=== PATIENT | male | born 1975 | race Caucasian/White ===

== ENCOUNTER → 2017-04-29 | Outpatient (REF) | payer BC ==
[2017-05-01 00:07] LABS: Lyme Disease IgG/IgM Antibodie <0.91 ISR (0.00-0.90); Lyme Disease IgM Ab Quantitati <0.80 index (0.00-0.79)
== END ==
LOC: M LAB REF 11:46
PROVIDERS: ATTEND Nurse Practitioner Family
DX: N52.9 Male erectile dysfunction, unspecified (principal); Z11.59 Encounter for screening for other viral diseases

== ENCOUNTER → 2018-03-31 | Outpatient (REF) | payer BC ==
[2018-03-31 12:21] LABS: FOLLICLE STIMULATING HORMONE 0.5 mIU/mL (1.4-18.1); LUTEINIZING HORMONE < 0.1 mIU/mL (1.5-9.3)
[2018-03-31 14:26] LABS: TESTOSTERONE 1676 NG/DL (241-827)
== END ==
LOC: M LAB REF 11:47
DX: T38.7X5A Adverse effect of androgens and anabolic congeners, initial encounter (principal); N52.9 Male erectile dysfunction, unspecified
CPT/HCPCS: 83001

== ENCOUNTER → 2018-06-08 | Outpatient (REF) | payer BC ==
[2018-06-08 21:02] LABS: LUTEINIZING HORMONE < 0.1 mIU/mL (1.5-9.3)
[2018-06-08 21:02] LABS: TESTOSTERONE 483 NG/DL (241-827)
[2018-06-08 21:03] LABS: ESTRADIOL 34.8 PG/ML (<39.8); FOLLICLE STIMULATING HORMONE < 0.3 mIU/mL (1.4-18.1)
== END ==
LOC: M LAB REF 20:06
DX: T38.7X5A Adverse effect of androgens and anabolic congeners, initial encounter (principal)

== ENCOUNTER → 2018-12-31 | Outpatient (CLI) | payer BC ==
--- NOTE | 2018-12-31 16:44 | REP ---
KUB one-view History: Constipation A small amount of air is present in the intestine. There are no air-fluid levels or dilated loops of intestine. There is no pneumoperitoneum. A metal screw is present overlying the mid right lateral abdomen. A mild amount of stool is present in the colon. Impression: 1. Nonspecific bowel gas pattern. 2. A metal screw is present overlying the mid right lateral abdomen. Electronically Signed by Lebron Burns MD 12/31/2018 04:36 P
== END ==
LOC: M ADAMS 14:14
PROVIDERS: ATTEND Physician Assistant Medical
DX: K59.00 Constipation, unspecified (principal)

== ENCOUNTER 2019-10-24 11:27 | Emergency (ER) | payer BC ==
[~2019-10-24] VITALS: Ht 177.8 cm; Wt 81.8 kg
[2019-10-24] MEDS ORDERED: NS 1,000 ML IV ONE (12:15)
[2019-10-24] MEDS ORDERED: ALBUTEROL SULFATE 2.5 MG/0.5 ML INH NEB SOLN NEB ONE (12:15)
[2019-10-24 12:44] LABS: BASO # 0.1 10^3/uL (0.0-0.2); BASO % 1.1 % (0.0-1.0); EOS # 0.1 10^3/uL (0.0-0.5); EOS % 1.4 % (0.0-3.0); HEMATOCRIT 45.4 % (42.0-52.0); HEMOGLOBIN 15.8 g/dl (13.5-17.5); LYMPH # 1.7 10^3/uL (1.5-5.0); LYMPH % 25.2 % (24.0-44.0); MEAN CORPUSCULAR HEMOGLOBIN 31.9 pg (27.0-33.0); MEAN CORPUSCULAR HGB CONC 34.8 g/dl (32.0-36.5); MEAN CORPUSCULAR VOLUME 91.7 fl (80.0-96.0); MONO # 0.6 10^3/uL (0.0-0.8); MONO % 8.7 % (0.0-5.0); NEUTROPHILS # 4.2 10^3/uL (1.5-8.5); NEUTROPHILS % 63.4 % (36.0-66.0); PLATELET COUNT, AUTOMATED 262 10^3/uL (150-450); RED BLOOD COUNT 4.95 10^6/uL (4.30-6.10); WHITE BLOOD COUNT 6.6 10^3/uL (4.0-10.0)
--- NOTE | 2019-10-24 12:48 | REP ---
KUB: Two views. History: Abdomen pain and constipation. Findings: There are air-filled loops of normal caliber small bowel throughout the central abdomen question mild ileus. No colonic distension or obstipation pattern is seen. There is mild vascular calcification bilaterally in the pelvis. Psoas margins and flank stripes are intact. No mass organomegaly is seen. Impression: Multiple air-filled loops of the nondilated small bowel in the central abdomen. Nonspecific. Ileus versus enteritis. Electronically Signed by Shahram Martines MD 10/24/2019 12:39 P
[2019-10-24] MEDS ORDERED: ONDANSETRON 4MG/2ML VIAL (J2405) IV ONE (13:00)
[2019-10-24 13:07] LABS: ALBUMIN 4.5 GM/DL (3.2-5.2); ALT/SGPT 31 U/L (12-78); BILIRUBIN,DIRECT 0.2 MG/DL (0.0-0.2); BILIRUBIN,TOTAL 0.5 MG/DL (0.2-1.0); BLOOD UREA NITROGEN 12 MG/DL (7-18); CALCIUM LEVEL 9.6 MG/DL (8.5-10.1); CARBON DIOXIDE LEVEL 25 MEQ/L (21-32); CHLORIDE LEVEL 104 MEQ/L (98-107); CK-MB VALUE MASS < 1.0 NG/ML (<3.6); CPK CREATINE PHOSPHOKINASE 139 U/L (39-308); CREATININE FOR GFR 0.96 MG/DL (0.70-1.30); GLOMERULAR FILTRATION RATE > 60.0 (>60); GLUCOSE, FASTING 92 MG/DL (70-100); LIPASE 161 U/L (73-393); MB/CK RELATIVE INDEX 0.72 (< OR =4); POTASSIUM SERUM 4.1 MEQ/L (3.5-5.1); SODIUM LEVEL 138 MEQ/L (136-145); TOTAL PROTEIN 7.4 GM/DL (6.4-8.2); TROPONIN I < 0.02 NG/ML (< 0.10)
[2019-10-24] MEDS: GASTROGRAFIN SOLUTION 30ML PO SCH ×2 (13:26→13:54)
[2019-10-24] MEDS ORDERED: ISOVUE-370 76% 100ML VIAL (Q9967) As Ordered ONE (14:36)
--- NOTE | 2019-10-24 15:24 | REP ---
CT ABDOMEN/PELVIS WITH IV AND ORAL CONTRAST: HISTORY: Abdomen pain. Constipation. Rule out ileus versus obstruction. Comparison is made with radiographs done earlier today. CT CONTRAST DOSE: 100 mL of intravenous Isovue-[address] FINDINGS: Preliminary digital operations manager station radiograph shows the same bowel gas pattern as the film done earlier today. The lung bases are clear. The liver is normal in size homogeneous in texture. The spleen is unremarkable. No abnormalities noted in the pancreas or the gallbladder. Normal adrenals are seen. The kidneys enhance symmetrically. They are morphologically intact. No hydronephrosis or intrarenal calculus is observed. A normal appendix is seen in the right lower quadrant. Small and large bowel loops are normal in the abdomen and pelvis with multiple air-filled loops of small bowel again seen. There is no evidence of free air or free fluid. Urinary bladder, seminal vesicles, and prostate are unremarkable. No abdominal wall defect is seen. IMPRESSION: No acute abdominal or pelvic abnormality. Normal appendix seen. Air-filled loops of small bowel as seen radiographically. No obstructive lesion seen. Electronically Signed by Shahram Martines MD 10/24/2019 05:52 P
[2019-10-24 16:28] VITALS: BP 133/81
--- NOTE | 2019-10-26 07:44 | ECGEPIP ---
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
== END 2019-10-24 16:30 | disposition home or self-care (01) ==
LOC: M ED 11:27
DX: K56.7 Ileus, unspecified (principal); K59.00 Constipation, unspecified; R11.0 Nausea; R42 Dizziness and giddiness; R06.02 Shortness of breath; R94.31 Abnormal electrocardiogram [ECG] [EKG]; F17.210 Nicotine dependence, cigarettes, uncomplicated; G89.29 Other chronic pain; M54.5 Low back pain; F41.9 Anxiety disorder, unspecified
CPT/HCPCS: 36415; 74018; 74177; 80048; 80076; 82550; 82553; 83690; 84484; 85025; 87880; 93005; 94640; 96361; 96374; 99284; G0480; J2405; Q9963; Q9967

== ENCOUNTER → 2020-05-23 | Outpatient (REF) | payer BC ==
[2020-07-02 06:29] LABS: Lyme Disease IgG/IgM Antibodie See Separate Report
[2020-07-07 17:38] LABS: C REACTIVE PROTEIN QUANTITATIV < 0.30 MG/DL (0.00-0.30); LIPASE 217 U/L (73-393)
== END ==
LOC: M LAB REF 11:09
PROVIDERS: ATTEND Nurse Practitioner Adult Health
DX: M54.5 Low back pain (principal); R53.83 Other fatigue; W57.XXXA Bitten or stung by nonvenomous insect and other nonvenomous arthropods, initial encounter

== ENCOUNTER → 2020-08-21 | Outpatient (CLI) | payer SELFPAY | LOC: M LABSMTC 09:11 | PROVIDERS: ATTEND Pediatrics | DX: Z20.828 Contact with and (suspected) exposure to other viral communicable diseases (principal) ==

== ENCOUNTER → 2020-11-15 | Outpatient (CLI) | payer BC ==
[~2020-11-15] MED LIST: ALPR1TAB3 PO; CLOM50TA9 PO; FINA1TAB12 PO; TRAZ-252 PO
== END ==
LOC: M LABSMTC 10:37
PROVIDERS: ATTEND Anesthesiology
DX: Z01.812 Encounter for preprocedural laboratory examination (principal); Z20.822 Contact with and (suspected) exposure to COVID-19

== ENCOUNTER 2020-11-20 08:37 | Day surgery (SDC) | payer BC ==
[~2020-11-20] VITALS: Ht 177.8 cm; Wt 82.6 kg
[~2020-11-20 08:37] MED LIST changes: +NS 1,000 ML IV ONE
--- OUTSIDE RECORDS SUMMARY | 2020-11-20 08:42 | CCD | Continuity of Care Document ---
Author Atif Vega MD Organization Unknown Address [address] [place] [id number] Phone [phone] Care Team Providers Care Ops Analyst Name Role Phone Yvonne Baker AUTM [phone] Problems Description No Information Available Social History Type Date Description Comments Sex Unknown ETOH Use Occasionally consumes alcohol Tobacco Use Start: Unknown Non Smoker Allergies, Adverse Reactions, Alerts Description No Known Drug Allergies Medications Active Medications SIG Qnty Indications Ordering Provide r Date Magnesium Citrate 1.745GM/30ML Dayana ution one 10 oz bottle green or clear only, use for additional prep at 2- 3 days before procedure 296ml K58.1 Heri Huizar MD 08/27/2020 Suprep Bowel Prep Kit 17.5-3.13-1.6GM/177ML Solution as directed - see dr pond instructions 1Kit K58.1 Heri Huizar MD 08/27/2020 Miralax 17GM/Scoop Powder 17 gm twice a day 1020gm K58.1 Heri Huizar MD 08/27/2020 Lactase Fast Acting 9000Unit Table ts Take 2 tablets by mouth 3 times per day with first bite of dairy - containing food for inability of body to handle lactose or milk sugar 360tabs Heri Huizar MD 08/27/2020 Xanax 0.5mg Tablets 1 tab by mouth prn Unknown Multi Vitamin Tablets 2 by mouth every day Unknown Vitamin D3 25mcg (1000 Ut) Capsule s 1 by mouth every day Unknown Immunizations Description No Information Available Vital Signs Date Vital Result Comment 08/27/2020 1:23pm BP Systolic 121 mmHg BP Diastolic 65 mmHg Height 70 inches 5'10" Weight 183.00 lb BMI (Body Mass Index) 26.3 kg/m2 [place] Body Weight 166 lb Weight 83.009 kg Results Description No Information Available Procedures Description No Information Available Medical Devices Description No Information Available Encounters Type Date Location Provider Dx Diagnosis Office Visit 08/27/2020 1:15p [facility] Heri Huizar MD K58.1 Irritable bowel syndrome with constipation Z80.0 Family history of malignant neoplasm of digestive organs E73.9 Lactose intolerance, unspeci fied Assessments Date Code Description Provider 08/27/2020 K58.1 Irritable bowel syndrome with co nstipation Heri Huizar MD 08/27/2020 Z80.0 Family history of malignant neop lasm of digestive organs Heri Huizar MD 08/27/2020 E73.9 Lactose intolerance, unspecified Heri Huizar MD Plan of Treatment 08/27/2020 - Heri Huizar MD* K58.1 Irritable bowel syndrome with constipation * Z80.0 Family history of malignant neoplasm of digestive organs * E73.9 Lactose intolerance, unspecified * * New Medication:* Magnesium Citrate 1.745 GM/30ML * Suprep Bowel Prep Kit 17.5-3.13-1.6 GM/177ML * Miralax 17 GM/Scoop * New Orders:* Colonoscopy, Ordered: 08/27/20 * Recommendations:* 1) cut back/eliminalte dairy products. If unable, then would start supplementing aggressively with lactase enzyme. - This is OTC--6 tabs with each glass of dairy 2) Miralax 17 gm bid 3) colonoscopy Functional Status Description No Information Available Mental Status Description No Information Available Referrals Refer to Reason for Referral Status Appt Date Heri Huizar MD CHANGE IN BOWELS & FAMILY HX OF COLON CANCER Scheduled 08/27/2020 [facility], Gastroenterology [address], [address] [place] [address] [phone]
--- OUTSIDE RECORDS SUMMARY | 2020-11-20 08:42 | CCD ---
Author Author [facility] Organization [facility] Address Unknown Phone Unavailable Care Team Providers [facility] Name Role Phone LePine, M Yvonne BUSHER HELPER Unavailable Unavailable LePine, M Yvonne BUSHER HELPER Unavailable Unavailable LePine, M Yvonne BUSHER HELPER Unavailable Unavailable LePine, M Yvonne BUSHER HELPER Unavailable Unavailable LePine, M Yvonne BUSHER HELPER Unavailable Unavailable LePine, M Yvonne BUSHER HELPER Unavailable Unavailable LePine, M Yvonne BUSHER HELPER Unavailable Unavailable LePine, M Yvonne BUSHER HELPER Unavailable Unavailable LePine, M Yvonne BUSHER HELPER Unavailable Unavailable LePine, M Yvonne BUSHER HELPER Unavailable Unavailable LePine, M Yvonne BUSHER HELPER Unavailable Unavailable LePine, M Yvonne BUSHER HELPER Unavailable Unavailable LePine, M Yvonne BUSHER HELPER Unavailable Unavailable LePine, M Yvonne BUSHER HELPER Unavailable Unavailable LePine, M Yvonne BUSHER HELPER Unavailable Unavailable LePine, M Yvonne BUSHER HELPER Unavailable Unavailable LePine, M Yvonne BUSHER HELPER Unavailable Unavailable LePine, M Yvonne BUSHER HELPER Unavailable Unavailable LePine, M Yvonne BUSHER HELPER Unavailable Unavailable LePine, M Yvonne BUSHER HELPER Unavailable Unavailable LePine, M Yvonne BUSHER HELPER Unavailable Unavailable LePine, M Yvonne BUSHER HELPER Unavailable Unavailable LePine, M Yvonne BUSHER HELPER Unavailable Unavailable LePine, M Yvonne BUSHER HELPER Unavailable Unavailable LePine, M Yvonne BUSHER HELPER Unavailable Unavailable LePine, M Yvonne BUSHER HELPER Unavailable Unavailable LePine, M Yvonne BUSHER HELPER Unavailable Unavailable LePine, M Yvonne BUSHER HELPER Unavailable Unavailable LePine, M Yvonne BUSHER HELPER Unavailable Unavailable LePine, M Yvonne BUSHER HELPER Unavailable Unavailable LePine, M Yvonne BUSHER HELPER Unavailable Unavailable LePine, M Yvonne BUSHER HELPER Unavailable Unavailable LePine, M Yvonne BUSHER HELPER Unavailable Unavailable LePine, M Yvonne BUSHER HELPER Unavailable Unavailable LePine, M Yvonne BUSHER HELPER Unavailable Unavailable LePine, M Yvonne BUSHER HELPER Unavailable Unavailable LePine, M Yvonne BUSHER HELPER Unavailable Unavailable LePine, M Yvonne BUSHER HELPER Unavailable Unavailable LePine, M Yvonne BUSHER HELPER Unavailable Unavailable LePine, M Yvonne BUSHER HELPER Unavailable Unavailable LePine, M Yvonne BUSHER HELPER Unavailable Unavailable LePine, M Yvonne BUSHER HELPER Unavailable Unavailable LePine, M Yvonne BUSHER HELPER Unavailable Unavailable LePine, M Yvonne BUSHER HELPER Unavailable Unavailable LePine, M Yvonne BUSHER HELPER Unavailable Unavailable LePine, M Yvonne BUSHER HELPER Unavailable Unavailable LePine, M Yvonne BUSHER HELPER Unavailable Unavailable LePine, M Yvonne BUSHER HELPER Unavailable Unavailable LePine, M Yvonne BUSHER HELPER Unavailable Unavailable LePine, M Yvonne BUSHER HELPER Unavailable Unavailable LePine, M Yvonne BUSHER HELPER Unavailable Unavailable LePine, M Yvonne BUSHER HELPER Unavailable Unavailable LePine, M Yvonne BUSHER HELPER Unavailable Unavailable LePine, M Yvonne BUSHER HELPER Unavailable Unavailable LePine, M Yvonne BUSHER HELPER Unavailable Unavailable REINDL, LAURA JOHNSON Unavailable Unavailable REINDL, LAURA JOHNSON Unavailable Unavailable REINDL, LAURA JOHNSON Unavailable Unavailable REINDL, LAURA JOHNSON Unavailable Unavailable REINDL, LAURA JOHNSON Unavailable Unavailable REINDL, LAURA JOHNSON Unavailable Unavailable REINDL, LAURA JOHNSON Unavailable Unavailable REINDL, LAURA JOHNSON Unavailable Unavailable REINDL, LAURA JOHNSON Unavailable Unavailable REINDL, LAURA JOHNSON Unavailable Unavailable REINDL, LAURA JOHNSON Unavailable Unavailable REINDL, LAURA JOHNSON Unavailable Unavailable REINDL, LAURA JOHNSON Unavailable Unavailable REINDL, LAURA JOHNSON Unavailable Unavailable REINDL, LAURA JOHNSON Unavailable Unavailable REINDL, LAURA JOHNSON Unavailable Unavailable REINDL, LAURA JOHNSON Unavailable Unavailable REINDL, LAURA JOHNSON Unavailable Unavailable REINDL, LAURA JOHNSON Unavailable Unavailable REINDL, LAURA JOHNSON Unavailable Unavailable REINDL, LAURA JOHNSON Unavailable Unavailable REINDL, LAURA JOHNSON Unavailable Unavailable REINDL, LAURA JOHNSON Unavailable Unavailable REINDL, LAURA JOHNSON Unavailable Unavailable REINDL, LAURA JOHNSON Unavailable Unavailable REINDL, LAURA JOHNSON Unavailable Unavailable REINDL, LAURA JOHNSON Unavailable Unavailable REINDL, LAURA JOHNSON Unavailable Unavailable REINDL, LAURA JOHNSON Unavailable Unavailable REINDL, LAURA JOHNSON Unavailable Unavailable REINDL, LAURA JOHNSON Unavailable Unavailable REINDL, LAURA JOHNSON Unavailable Unavailable REINDL, LAURA JOHNSON Unavailable Unavailable REINDL, LAURA JOHNSON Unavailable Unavailable REINDL, LAURA JOHNSON Unavailable Unavailable REINDL, LAURA JOHNSON Unavailable Unavailable REINDL, LAURA JOHNSON Unavailable Unavailable REINDL, LAURA JOHNSON Unavailable Unavailable REINDL, LAURA JOHNSON Unavailable Unavailable REINDL, LAURA JOHNSON Unavailable Unavailable REINDL, LAURA JOHNSON Unavailable Unavailable REINDL, LAURA JOHNSON Unavailable Unavailable REINDL, LAURA JOHNSON Unavailable Unavailable REINDL, LAURA JOHNSON Unavailable Unavailable Re-disclosure Warning The records that you are about to access may contain information from federally-assisted alcohol or drug abuse programs. If such information is present, then the following federally mandated warning applies: This information has been disclosed to you from records protected by federal confidentiality rules (42 CFR part 2). The federal rules prohibit you from making any further disclosure of this information unless further disclosure is expressly permitted by the written consent of the person to whom it pertains or as otherwise permitted by 42 CFR part 2. A general authorization for the release of medical or other information is NOT sufficient for this purpose. The Federal rules restrict any use of the information to criminally investigate or prosecute any alcohol or drug abuse patient.The records that you are about to access may contain highly sensitive health information, the redisclosure of which is protected by Article 27-F of the [facility] Public Health law. If you continue you may have access to information: Regarding HIV / AIDS; Provided by facilities licensed or operated by the [facility] Office of Mental Health; or Provided by the [facility] Office for People With Developmental Disabilities. If such information is present, then the following [facility] mandated warning applies: This information has been disclosed to you from confidential records which are protected by state law. State law prohibits you from making any further disclosure of this information without the specific written consent of the person to whom it pertains, or as otherwise permitted by law. Any unauthorized further disclosure in violation of state law may result in a fine or custodial sentence or both. A general authorization for the release of medical or other information is NOT sufficient authorization for further disc losure. Family History Family Member Name Family Member Gender Family Member Status Date o f Status Description Data Source(s) Unknown Male Problem [facility] ([facility]) Unknown Male Problem [facility] ([facility] Encounters Encounter Providers Location Date Indications Data Source(s ) Outpatient Attender: LAURA Pierre/Smitha/Marvin/Jean Pierre morrow 08/27/2020 12:15:00 PM EST [facility] ([facility]) Outpatient Attender: Yvonne Ha 05/23 01:40:00 PM EDT [facility] ([facility] ) Medications Medication Brand Name Start Date Product Form Dose Route Admi nistrative Instructions Pharmacy Instructions Status Indications Reaction Description Data Source(s) 17.5-3.13-1.6 gram 11/18/2020 12:00:00 AM EST [facility] 354 USE DIRECTED- SEE DR GROSS INSTRUCTIONS USE DIRECTED- SEE DR GROSS INSTRUCTIONS SOLD: 11/18/2020 [facility] 1 mg 11/07/2020 12:00:00 AM EST tablet 120 TAKE ONE TABLET BY MOUTH FOUR TIMES A DAY MAXIMUM DAILY DOSE = 4 TAKE ONE TABLET BY MOUTH FOUR TIMES A DA Y MAXIMUM DAILY DOSE = 4 SOLD: 11/07/2020 [facility] 50 mg 10/10/2020 12:00:00 AM EST tablet 30 TAKE ONE TABLET BY MOUTH EVERY DAY TAKE ONE TABLET BY MOUTH EVERY DAY SOLD: 10/10/2020 [facility] Finasteride 1 MG Oral Tablet FINASTERIDE 10/10/2020 12:00:00 AM EST ta blet 30 TAKE ONE TABLET BY MOUTH EVERY DAY TAKE ONE TABLET BY MOUTH EVERY DAY SOLD: 10/10/2020 [facility] 1 mg 09/19/2020 12:00:00 AM EST tablet 120 TAKE ONE TABLET BY MOUTH FOUR TIMES A DAY MAXIMUM DAILY DOSE = 4 TAKE ONE TABLET BY MOUTH FOUR TIMES A DA Y MAXIMUM DAILY DOSE = 4 SOLD: 09/20/2020 [facility] Lactase 9000 UNT Oral Tablet Lactase Fast Acting 08/27/2020 12:00:00 AM EST ORAL active [facility] ([facility], ) magnesium citrate 58.2 MG/ML Oral Solution Magnesium Citrate 08/27/2020 12:00:00 AM EST active [facility] ([facility]) POLYETHYLENE GLYCOL 3350 142 MG/ML Oral Solution [Miralax] M iralax 08/27/2020 12:00:00 AM EST active M EDENT ([facility]) Suprep Bowel Prep Kit Suprep Bowel Prep Kit 08/27/2020 12:00:00 AM EST active [facility] ([facility] ) Finasteride 1 MG Oral Tablet FINASTERIDE 08/16/2020 12:00:00 AM EDT ta blet 30 TAKE ONE TABLET BY MOUTH EVERY DAY TAKE ONE TABLET BY MOUTH EVERY DAY SOLD: 08/16/2020 [facility] 50 mg 08/06/2020 12:00:00 AM EDT tablet 90 TAKE THREE TABLETS BY MOUTH EVERY DAY AT BEDTIME TAKE THREE TABLETS BY MOUTH EVERY DAY AT BEDTIME SOLD: 08/06/2020 [facility] 1 mg 08/06/2020 12:00:00 AM EDT tablet 120 TAKE ONE TABLET BY MOUTH FOUR TIMES A DAY MAXIMUM DAILY DOSE = 4 TAKE ONE TABLET BY MOUTH FOUR TIMES A DA Y MAXIMUM DAILY DOSE = 4 SOLD: 08/06/2020 [facility] 1 mg 05/16/2020 12:00:00 AM EDT tablet 120 TAKE ONE TABLET BY MOUTH FOUR TIMES A DAY MAXIMUM DAILY DOSE = 4 TAKE ONE TABLET BY MOUTH FOUR TIMES A DA Y MAXIMUM DAILY DOSE = 4 SOLD: 05/25/2020 [facility] 1 mg 04/17/2020 12:00:00 AM EDT tablet 120 TAKE ONE TABLET BY MOUTH FOUR TIMES A DAY MAXIMUM DAILY DOSE = 4 TABLETS TAKE ONE TABLET BY MOUTH FOUR TIMES A DAY MAXIMUM DAILY DOSE = 4 TABLETS SOLD: 04/24/2020 [facility] 1 mg 03/08/2020 12:00:00 AM EDT tablet 120 TAKE ONE TABLET BY MOUTH FOUR TIMES A DAY MAXIMUM DAILY DOSE = 4 TAKE ONE TABLET BY MOUTH FOUR TIMES A DA Y MAXIMUM DAILY DOSE = 4 SOLD: 03/19/2020 [facility] 50 mg 02/08/2020 12:00:00 AM EDT tablet 30 TAKE 1 TABLET BY MOUTH ONCE DAILY MAXIMUM DAILY DOSE = 1 TAKE 1 TABLET BY MOUTH ONCE DAILY MAXIMU M DAILY DOSE = 1 SOLD: 02/08/2020 [facility] 50 mg 02/08/2020 12:00:00 AM EDT tablet 30 TAKE 1 TABLET BY MOUTH ONCE DAILY MAXIMUM DAILY DOSE = 1 TAKE 1 TABLET BY MOUTH ONCE DAILY MAXIMU M DAILY DOSE = 1 SOLD: 03/19/2020 [facility] 1 mg 02/08/2020 12:00:00 AM EDT tablet 120 TAKE 1 TABLET BY MOUTH FOUR TIMES A DAY MAXIMUM DAILY DOSE = 4 TAKE 1 TABLET BY MOUTH FOUR TIMES A DAY MAXIMUM DAILY DOSE = 4 SOLD: 02/08/[address] [facility] 1 mg 12/26/2019 12:00:00 AM EDT tablet 120 TAKE ONE TABLET BY MOUTH FOUR TIMES A DAY MAXIMUM DAILY DOSE = 4 TAKE ONE TABLET BY MOUTH FOUR TIMES A DA Y MAXIMUM DAILY DOSE = 4 SOLD: 12/26/2019 [facility] Finasteride 1 MG Oral Tablet FINASTERIDE 11/02/2019 12:00:00 AM EST ta blet 30 TAKE ONE TABLET BY MOUTH EVERY DAY TAKE ONE TABLET BY MOUTH EVERY DAY SOLD: 03/19/2020 [facility] Finasteride 1 MG Oral Tablet FINASTERIDE 11/02/2019 12:00:00 AM EST ta blet 30 TAKE ONE TABLET BY MOUTH EVERY DAY TAKE ONE TABLET BY MOUTH EVERY DAY SOLD: 04/24/2020 [facility] Finasteride 1 MG Oral Tablet FINASTERIDE 11/02/2019 12:00:00 AM EST ta blet 30 TAKE ONE TABLET BY MOUTH EVERY DAY TAKE ONE TABLET BY MOUTH EVERY DAY SOLD: 01/14/2020 [facility] Finasteride 1 MG Oral Tablet FINASTERIDE 11/02/2019 12:00:00 AM EST ta blet 30 TAKE ONE TABLET BY MOUTH EVERY DAY TAKE ONE TABLET BY MOUTH EVERY DAY SOLD: 02/16/2020 [facility] Finasteride 1 MG Oral Tablet FINASTERIDE 11/02/2019 12:00:00 AM EST ta blet 30 TAKE ONE TABLET BY MOUTH EVERY DAY TAKE ONE TABLET BY MOUTH EVERY DAY SOLD: 11/02/2019 [facility] Finasteride 1 MG Oral Tablet FINASTERIDE 11/02/2019 12:00:00 AM EST ta blet 30 TAKE ONE TABLET BY MOUTH EVERY DAY TAKE ONE TABLET BY MOUTH EVERY DAY SOLD: 12/08/2019 [facility] 1 mg 10/25/2019 12:00:00 AM EST tablet 120 TAKE ONE TABLET BY MOUTH FOUR TIMES A DAY MAXIMUM DAILY DOSE = 4 TAKE ONE TABLET BY MOUTH FOUR TIMES A DA Y MAXIMUM DAILY DOSE = 4 SOLD: 10/25/2019 [facility] Insurance Providers Payer name Policy type / Coverage type Policy ID Covered constitution party ID Covered constitution party's relationship to jackson Policy [place] Plan Information [place]/307 [id number] SP [id number] SELF PAY ONLY [id number] SP [id number] [employer] [place]/307 [id number] SP [id number] [place]/307 [id number] [id number] BCBS/[employer] Commercial [id number] Family Dependent [id number] BLUE CROSS [id number] WIF [id number] [place] Hcare/Multiplan Medigap Part B [id number] Self [id number] [facility] Trad/MX Medigap Part B [id number] Family Depe ndent [id number] Lifetime Benefit ([employer]) Commercial [id number] Self [id number] [place] Trad/MX Medigap Part B [id number] Family Depe ndent [id number] [place] Trad/MX Commercial [id number] Family Dependen t [id number] [place] 302/307 [id number] [place]2 [id number] BCBS [place] [id number] Family Dependent [id number] EXCELLUS BCBS B [id number] P [id number] [employer] BCBS B UNAVAILABLE P UNAV AILABLE BS [place] Trad/MX Commercial 802 Family Dependent 802 United Hcare/Multiplan Medigap Part B Self [place] Trad/MX Commercial 802 Family Dependent 802 Lifetime Benefit ([employer]) Commercial Family Self Family [employer] MEDICAL CLAIMS [id number] SP [id number] Results ID Date Data Source [id number] 11/15/2020 02:00:00 PM EST [facility] Name Value Range Interpretation Code Description Data Mana rce(s) Supporting Document(s) SARS coronavirus 2 RNA Not Detected [facility] This lab was ordered by [facility] and reported by [facility]. ID Date Data Source [id number] 08/21/2020 12:00:00 AM EST [facility] Name Value Range Interpretation Code Description Data Mana rce(s) Supporting Document(s) 2019-nCoV RNA XXX [facility] by [facility] and reported by [employer] ID Date Data Source [id number] 05/23/2020 02:20:00 PM EDT [facility] Name Value Range Interpretation Code Description Data Mana rce(s) Supporting Document(s) Lipoprotein lipase [Enzymatic activity/volume] in Serum or P lasma 217 U/L 73-393 [facility] ([facility]) C reactive protein [Mass/volume] in Serum or Plasma by High sensitivity method Laboratory test result 0.00-0.30 [facility] ID Date Data Source [id number] 05/23/2020 02:20:00 PM EDT [facility] Name Value Range Interpretation Code Description Data Mana rce(s) Supporting Document(s) Laboratory test finding (navigational concept) Laboratory test result [facility] ([facility]) See Separate Report Testing performed at reference lab . Report copy to follow on a separate form. 07/02/20 REF LAB#:[id number] ID Date Data Source [id number] 05/28/2020 07:05:00 PM EDT [facility] Name Value Range Interpretation Code Description Data Mana rce(s) Supporting Document(s) Lyme IgG/IgM Ab 0.00-0.90 [facility] Negative <0.91 [facility] 0.91 - 1.09 Positive >1.09 Lyme Disease Ab, Quant, IgM 0.00-0.79 [facility] Negative <0.80 Equivocal 0.80 - 1.19 Positive >1.19 IgM levels may peak at 3-6 weeks post infection, then gradually decline. ID Date Data Source [id number] 05/23/2020 02:20:00 PM EDT [facility] Name Value Range Interpretation Code Description Data Mana rce(s) Supporting Document(s) C reactive protein [Mass/volume] in Serum or Plasma by High sensitivity method Laboratory test result [facility] ([facility]) Lipoprotein lipase [Enzymatic activity/volume] in Seru m or Plasma Laboratory test result [facility] ([facility] ) ID Date Data Source [id number] 05/23/2020 02:18:00 PM EDT [facility]) Name Value Range Interpretation Code Description Data Mana rce(s) Supporting Document(s) Urine Color Laboratory test result [facility] T ([facility]) Urine PH 6.0 units 5.0-9.0 [facility] Urine Appearance Laboratory test result [facility] ([facility]) Urine Leukocytes Laboratory test result [facility]) Urine Blood Laboratory test result [facility] ([facility]) Specific gravity of Urine 1.015 1.005-1.030 [facility] ([facility]) Glucose [Presence] in Urine Laboratory test result [facility] ([facility]) Urine Protein Laboratory test result 0-0 [facility] ([facility]) Urine Nitrite Laboratory test result [facility] ([facility]) Bilirubin.total [Mass/volume] in Serum or Plasma Laboratory test resu lt [facility] ([facility]) Urine Ketone Laboratory test result [facility] Urine Urobilinogen 0.2 mg/dL 0.2-1.0 [facility] ([facility]) ID Date Data Source [id number] 05/23/2020 02:18:00 PM EDT [facility] ([facility]) Name Value Range Interpretation Code Description Data Mana rce(s) Supporting Document(s) Thyrotropin [Units/volume] in Serum or Plasma by Detec tion limit <= 0.05 mIU/L 1.21 uIU/mL 0.36-3.74 [facility] ID Date Data Source [id number] 05/23/2020 02:18:00 PM EDT [facility] ([facility] Name Value Range Interpretation Code Description Data Mana rce(s) Supporting Document(s) Cholesterol in HDL [Mass/volume] in Serum or Plasma 33 mg/dL 35-60 [facility] ([facility]) Cholesterol [Mass/volume] in Serum or Plasma 178 mg/dL 131-200 [facility] ([facility]) Triglyceride [Mass/volume] in Serum or Plasma 259 mg/dL 30-150 [facility] ([facility]) Cholesterol in LDL [Mass/volume] in Serum or Plasma by calcu lation 93 CALC 50-159 [facility] ID Date Data Source [id number] 05/23/2020 02:18:00 PM EDT [facility] ([facility]) Name Value Range Interpretation Code Description Data Mana rce(s) Supporting Document(s) Urea nitrogen [Mass/volume] in Serum or Plasma 18 mg/dL 7-18 [facility] ([facility]) Glucose [Mass/volume] in Serum or Plasma 93 mg/dL 74-99 [facility] ([facility]) 100-125 mg/dL PRE-DIABETES/FASTING >126 mg/dL DIABETES/FASTING Potassium [Moles/volume] in Serum or Plasma 4.1 meq/L 3.5-5.1 [facility] ([facility]) Sodium [Moles/volume] in Serum or Plasma 141 meq/L 136-145 [facility] ([facility]) Creatinine 1.0 mg/dL 0.6-1.3 [facility] Chloride [Moles/volume] in Serum or Plasma 103 meq/L 98-107 [facility] ([facility]) Carbon dioxide, total [Moles/volume] in Serum or Plasma 28 meq/L 21 -32 [facility] ([facility]) Alkaline phosphatase isoenzyme [Units/volume] in Serum or Pl asma 44 mg/dL 46-116 [facility] ([facility]) Calcium [Mass/volume] in Serum or Plasma 9.2 mg/dL 8.5-10.1 [facility] ([facility]) Total Bilirubin 0.3 mg/dL 0.2-1.0 [facility] ([facility]) Aspartate aminotransferase [Enzymatic activity/volume] in Serum or Plasma 17 U/L 15-37 [facility] ([facility] ) Alanine aminotransferase [Enzymatic activity/volume] in Seru m or Plasma 28 U/L 12-78 [facility] ([facility]) Albumin [Mass/volume] in Serum or Plasma 4.0 g/dL 3.4-5.0 [facility] ([facility]) Proteinase 3 Ab [Units/volume] in Serum 7.4 g/dL 6.4-8.2 [facility] ([facility]) A/G Ratio 1.18 CALC 1.00-1.90 [facility] ([facility]) Glomerular filtration rate/1.73 sq M pre dicted among non-blacks [Volume Rate/Area] in Serum or Plasma by Creatinine-based formula (MDRD) Laboratory test result [facility] ([facility] ) Glomerular filtration rate/1.73 sq M pre dicted among blacks [Volume Rate/Area] in Serum or Plasma by Creatinine-based formula (MDRD) Laboratory test result [facility]) <content>CHRONIC KIDNEY DISEASE STAGING PER NKF</content>
<content></content>
<content>STAGE I & II GFR >= 60 NORMAL TO MILDLY DECREASED</content>
<content>STAGE III GFR 30-59 MODERATELY DECREASED</content>
<content>STAGE IV GFR 15-29 SEVERELY DECREASED</content>
<content>STAGE V GFR <15 VERY LITTLE GFR LEFT</content>
<content>ESRD GFR <15 ON CLASSROOM INSTRUCTOR</content>
<content></content> ID Date Data Source [id number] 05/23/2020 02:18:00 PM EDT [facility] Name Value Range Interpretation Code Description Data Mana rce(s) Supporting Document(s) Erythrocyte sedimentation rate by Westergren method 2 mm/hr 0-15 [facility] Prostate specific Ag [Mass/volume] in Serum or Plasma 1.22 ng/mL [facility]) This assay was performed on the Siemens Dimension EXL using the B- Galactosidase/CPRG methodology and should not be compared interchangeably with other methods. The PSA should not be used alone as a screening test for the presence or absence of malignant disease. ID Date Data Source [id number] 05/23/2020 02:18:00 PM EDT [facility] Name Value Range Interpretation Code Description Data Mana rce(s) Supporting Document(s) Erythrocytes [#/volume] in Blood by Automated count 4.94 x10*6/UL 4.2 0-6.30 [facility] ([facility]) Leukocytes [#/volume] in Blood by Automated count 6.1 x10*3/UL 4.1-10 .9 [facility] Hematocrit [Volume Fraction] of Blood by Automated count 45.6 % 3 7.0-51.0 [facility] ([facility]) Hemoglobin [Mass/volume] in Blood 15.5 g/dL 12.0-18.0 [facility] ([facility]) MCV 92.2 fL 80.0-97.0 [facility]) MCHC 34.1 g/dL 31.0-38.0 [facility]) MCH 31.5 pg 26.0-32.0 [facility]) Platelets [#/volume] in Blood by Automated count 258 x10*3/UL 140-440 [facility] ([facility]) Erythrocyte distribution width [Ratio] by Automated count 13.5 % 11.6-13.7 [facility] ([facility]) MPV 8.1 FL 7.8-11.0 [facility]) Lymph % 28.8 % 10.0-58.5 [facility]) Mid % 7.6 % 1.7-9.3 [facility]) Mid # 0.5 x10*3/UL 0.1-0.6 [facility] ([facility]) Lymph # 1.7 x10*3/UL 0.6-4.1 [facility] ([facility]) Neut % 63.6 % 37.0-92.0 [facility]) Neut # 3.9 x10*3/UL 2.0-7.8 [facility] ([facility]) Procedure Vital Signs ID Date Data Source UNK Name Value Range Interpretation Code Description Data Source(s) Body weight 83.009 kg 83.009 kg [facility] ([facility] [place] body weight 166 [lb_av] 166 [lb_av] [facility] ([facility]) Body mass index (BMI) [Ratio] 26.3 kg/m2 26.3 k g/m2 [facility] ([facility]) Body weight 183.00 [lb_av] 183.00 [lb_av] [facility] MERIDIANEN T ([facility]) Body height 70 [in_i] 70 [in_i] [facility] ([facility]) 5'10" Diastolic blood pressure 65 mm[Hg] 65 mm[Hg] [facility] ([facility]) Systolic blood pressure 121 mm[Hg] 121 mm[Hg] M EDENT ([facility]) Body mass index (BMI) [Ratio] 26.2 kg/m2 26.2 k g/m2 [facility] ([facility]) Oxygen saturation in Arterial blood by Pulse oximetry 97 % 97 % [place] ([facility]) RM Air Body weight 185.00 [lb_av] 185.00 [lb_av] JOANA T ([facility]) Body height 70.50 [in_i] 70.50 [in_i] [place] ([facility]) 5'10.50" Heart rate 60 /min 60 /min [place] ([facility]) Diastolic blood pressure 64 mm[Hg] 64 mm[Hg] [place] ([facility]) Systolic blood pressure 110 mm[Hg] 110 mm[Hg] Carlos STRATTON ([facility])
--- OUTSIDE RECORDS SUMMARY | 2020-11-20 08:42 | CCD | Continuity of Care Document ---
Author Author Atif HUIZAR MD Organization Unknown Address [address] [place] [id number] Phone [phone] Care Team Providers Care Edi Programmer Analyst Name Role Phone Yvonne Baker AUTM [phone] Problems Description No Information Available Social History Type Date Description Comments Sex Unknown Allergies, Adverse Reactions, Alerts Description No Information Available Medications Description No Information Available Immunizations Description No Information Available Vital Signs Description No Information Available Results Description No Information Available Procedures Description No Information Available Medical Devices Description No Information Available Encounters Description No Information Available Assessments Description No Information Available Plan of Treatment No Information Available Functional Status Description No Information Available Mental Status Description No Information Available Referrals Refer to Reason for Referral Status Appt Date Heri Huizar MD CHANGE IN BOWELS & FAMILY HX OF COLON CANCER Scheduled 08/27/2020 [facility], Gastroenterology [address] [place] [address], [address] [address] [phone]
[2020-11-20] MEDS ORDERED: LIDOCAINE 2% 100MG/5ML SDV (FOR ANES.) As Ordered ONE (08:49)
[2020-11-20] MEDS ORDERED: propofoL 200 MG/20 ML VIAL As Ordered ONE (08:49)
--- NOTE | 2020-11-20 10:24 | ROOR ---
Patient Name: Atif Cerda Procedure Date: 11/20/2020 9:56 AM Date of : 1975 Age: 45 Room: [facility] Gender: Male Note Status: Finalized Procedure: Colonoscopy Indications: Generalized abdominal pain, Irritable bowel syndrome with constipation, Change in bowel habits, Lactose intolerance suspected. Providers: Heri HUIZAR MD Referring MD: Marycruz Carson NP Requesting Provider: Medicines: Monitored Anesthesia Care Complications: No immediate complications. Procedure: Pre-Anesthesia Assessment: - The heart rate, respiratory rate, oxygen saturations, blood pressure, adequacy of pulmonary ventilation, and response to care were monitored throughout the procedure. The Colonoscope was introduced through the anus and advanced to 10 cm into the ileum. The colonoscopy was performed without difficulty. The patient tolerated the procedure well. The quality of the bowel preparation was good. Findings: The perianal and digital rectal examinations were normal. Two sessile polyps were found in the sigmoid colon. The polyps were 4 to 5 mm in size. These polyps were removed with a cold snare. Resection and retrieval were complete. Small Internal Hemorrhoids. Retroflexion in the right colon was performed. The exam was otherwise normal throughout the examined colon. The terminal ileum appeared normal. Impression: - Two 4 to 5 mm polyps in the sigmoid colon, removed with a cold snare. Resected and retrieved. - Small Internal Hemorrhoids. - The colon is otherwise normal. - The examined portion of the ileum was normal. - (Irritable Bowel Syndrome/IBS suspected.) Recommendation: - Lactose free diet. - Continue present medications. - Telephone endoscopist for pathology results in 2 weeks. - Repeat colonoscopy in 5 years for surveillance. Procedure Code(s): --- Professional --- 44805, Colonoscopy, flexible; with removal of tumor(s), polyp(s), or other lesion(s) by snare technique Diagnosis Code(s): --- Professional --- R19.4, Change in bowel habit K58.1, Irritable bowel syndrome with constipation R10.84, Generalized abdominal pain K63.5, Polyp of colon CPT copyright 2019 [employer]. All rights reserved. The codes documented in this report are preliminary and upon plastics and composites inspector review may be revised to meet current compliance requirements. Heri Huizar MD Heri HUIZAR MD 11/20/2020 10:24:02 AM Electronically signed by Heri HUIZAR MD Number of Addenda: 0 Note Initiated On: 11/20/2020 9:56 AM Estimated Blood Loss: Estimated blood loss: none.
[2020-11-20 10:51] VITALS: BP 122/58
== END 2020-11-20 10:53 | disposition home or self-care (01) ==
LOC: M OPP 08:37
PROVIDERS: ATTEND Internal Medicine Gastroenterology
DX: R10.84 Generalized abdominal pain (principal); K58.1 Irritable bowel syndrome with constipation; R19.4 Change in bowel habit; K63.5 Polyp of colon; K64.8 Other hemorrhoids; R12 Heartburn; F41.9 Anxiety disorder, unspecified; Z87.891 Personal history of nicotine dependence; Z79.899 Other long term (current) drug therapy; Z80.0 Family history of malignant neoplasm of digestive organs; Z80.3 Family history of malignant neoplasm of breast; Z82.49 Family history of ischemic heart disease and other diseases of the circulatory system

== ENCOUNTER → 2021-01-19 | Outpatient (REF) ==
[~2021-01-19] MED LIST changes: -NS 1,000 ML IV ONE
== END ==
LOC: M LABSMTC 10:36
PROVIDERS: ATTEND Pediatrics
DX: Z11.52 Encounter for screening for COVID-19 (principal)

== ENCOUNTER 2021-09-16 06:10 | Outpatient (RCR) | END 2021-09-16 15:00 | disposition home or self-care (01) | LOC: M EMP 06:10 | PROVIDERS: ATTEND Pediatrics | DX: Z11.52 Encounter for screening for COVID-19 (principal) ==

== ENCOUNTER → 2021-10-23 | Outpatient (REF) ==
[2021-10-23 15:36] LABS: RSV AMPLIFICATION NEGATIVE (NEGATIVE)
== END ==
LOC: M LABSMTC 11:14
PROVIDERS: ATTEND Pediatrics
DX: Z11.52 Encounter for screening for COVID-19 (principal)

== ENCOUNTER → 2022-04-02 | Outpatient (REF) | payer BC | LOC: M LAB REF 11:38 | PROVIDERS: ATTEND Nurse Practitioner Adult Health | DX: S20.462A Insect bite (nonvenomous) of left back wall of thorax, initial encounter (principal); M79.10 Myalgia, unspecified site ==

== ENCOUNTER → 2022-06-17 | Outpatient (REF) ==
[2022-06-17 09:55] LABS: RSV AMPLIFICATION NEGATIVE (NEGATIVE)
== END ==
LOC: M EMP 08:06
PROVIDERS: ATTEND Family Medicine
DX: Z11.52 Encounter for screening for COVID-19 (principal); Z20.822 Contact with and (suspected) exposure to COVID-19

== ENCOUNTER → 2023-01-14 | Outpatient (CLI) | payer BC ==
[2023-01-14 15:43] LABS: BASO # 0.1 10^3/uL (0.0-0.2); BASO % 0.7 % (0.0-1.0); EOS # 0.3 10^3/uL (0.0-0.5); EOS % 4.5 % (0.0-3.0); HEMATOCRIT 40.8 % (42.0-52.0); HEMOGLOBIN 13.9 g/dl (13.5-17.5); LYMPH # 1.4 10^3/uL (1.5-5.0); LYMPH % 18.9 % (24.0-44.0); MEAN CORPUSCULAR HEMOGLOBIN 32.1 pg (27.0-33.0); MEAN CORPUSCULAR HGB CONC 34.1 g/dl (32.0-36.5); MEAN CORPUSCULAR VOLUME 94.2 fl (80.0-96.0); MONO # 0.9 10^3/uL (0.0-0.8); MONO % 13.1 % (2.0-8.0); NEUTROPHILS # 4.5 10^3/uL (1.5-8.5); NEUTROPHILS % 62.5 % (36.0-66.0); PLATELET COUNT, AUTOMATED 245 10^3/uL (150-450); RED BLOOD COUNT 4.33 10^6/uL (4.30-6.10); WHITE BLOOD COUNT 7.2 10^3/uL (4.0-10.0)
[2023-01-14 16:17] LABS: ERYTHROCYTE SEDIMENTATION RATE 20 mm/hr (0-15)
== END ==
LOC: M PLALAB 12:34
PROVIDERS: ATTEND Physician Assistant
DX: S82.54XA Nondisplaced fracture of medial malleolus of right tibia, initial encounter for closed fracture (principal); S90.32XA Contusion of left foot, initial encounter; S90.02XA Contusion of left ankle, initial encounter; Y93.9 Activity, unspecified; Y92.9 Unspecified place or not applicable

== ENCOUNTER → 2023-01-16 | Outpatient (CLI) | payer BC ==
[2023-01-16 15:57] LABS: HEPATITIS B SURFACE ANTIGEN NEGATIVE (NEGATIVE)
[2023-01-16 16:00] LABS: ALBUMIN 4.1 G/DL (3.2-5.2); ALKALINE PHOSPHATASE 67 U/L (46-116); ALT/SGPT 51 U/L (7.0-40); AST/SGOT 52 U/L (<34); BILIRUBIN,TOTAL 0.6 MG/DL (0.3-1.2); BLOOD UREA NITROGEN 19 MG/DL (9-23); CALCIUM LEVEL 9.6 MG/DL (8.5-10.1); CARBON DIOXIDE LEVEL 33 MMOL/L (20-31); CHLORIDE LEVEL 102 MMOL/L (98-107); CREATININE FOR GFR 0.95 MG/DL (0.70-1.30); GLOMERULAR FILTRATION RATE > 60.0 (>60); GLUCOSE, FASTING 66 MG/DL (60-100); POTASSIUM SERUM 4.3 MMOL/L (3.5-5.1); SODIUM LEVEL 139 MMOL/L (136-145); TOTAL PROTEIN 6.7 G/DL (5.7-8.2)
[2023-01-16 16:10] LABS: HIV 1&2 SCREEN CENTAUR NEGATIVE (NEGATIVE)
[2023-01-16 16:19] LABS: HEPATITIS B CORE ANTIBODY IGM NEGATIVE (NEGATIVE)
== END ==
LOC: M PLALAB 11:46
PROVIDERS: ATTEND Nurse Practitioner Family
DX: Z77.21 Contact with and (suspected) exposure to potentially hazardous body fluids (principal)

== ENCOUNTER → 2023-10-22 | Outpatient (REF) | LOC: M EMP 11:31 | PROVIDERS: ATTEND Family Medicine | DX: Z11.52 Encounter for screening for COVID-19 (principal) ==

== ENCOUNTER → 2024-05-10 | Outpatient (REF) | payer BC ==
[~2024-05-10] MED LIST changes: -FINA1TAB12 PO; +FINA1TAB4 PO
== END ==
LOC: M SFHCCLAY 13:04
PROVIDERS: ATTEND Nurse Practitioner Family
DX: Z77.21 Contact with and (suspected) exposure to potentially hazardous body fluids (principal); F17.218 Nicotine dependence, cigarettes, with other nicotine-induced disorders; M25.50 Pain in unspecified joint; Z13.220 Encounter for screening for lipoid disorders; Z53.9 Procedure and treatment not carried out, unspecified reason

== ENCOUNTER → 2024-11-29 | Outpatient (REF) | LOC: M EMP 07:46 | PROVIDERS: ATTEND Family Medicine | DX: Z01.89 Encounter for other specified special examinations (principal) ==

== ENCOUNTER → 2025-05-02 | Outpatient (CLI) | payer BC ==
[~2025-05-02] MED LIST changes: +CLOM50TA31 PO; -CLOM50TA9 PO
[2025-05-02 12:16] LABS: BASO # 0.1 10^3/uL (0.0-0.2); BASO % 1.3 % (0.0-1.0); EOS # 0.2 10^3/uL (0.0-0.5); EOS % 3.6 % (0.0-3.0); LYMPH # 1.1 10^3/uL (1.5-5.0); LYMPH % 23.2 % (24.0-44.0); MONO # 0.5 10^3/uL (0.0-0.8); MONO % 11.5 % (2.0-8.0); NEUTROPHILS # 2.8 10^3/uL (1.5-8.5); NEUTROPHILS % 60.0 % (36.0-66.0); PLATELET COUNT, AUTOMATED 275 10^3/uL (150-450)
[2025-05-02 12:17] LABS: PSA SCREENING 1.16 NG/ML (< 4.00)
[2025-05-02 12:19] LABS: ALT/SGPT 27.0 U/L (7.0-40); AST/SGOT 24.0 U/L (<34); CALCIUM LEVEL 9.4 MG/DL (8.5-10.1); CARBON DIOXIDE LEVEL 27.0 MMOL/L (20-31); CHLORIDE LEVEL 103.0 MMOL/L (98-107); CHOLESTEROL LEVEL 189.0 MG/DL (<200); CHOLESTEROL RISK RATIO 4.17 (<5); CREATININE FOR GFR 1.03 MG/DL (0.70-1.30); GLOMERULAR FILTRATION RATE 89.1 (>60); LDL CHOLESTEROL 113.9 MG/DL (<100); NON-HDL-C 143.7 MG/DL; POTASSIUM SERUM 5.0 MMOL/L (3.5-5.1); SODIUM LEVEL 138.0 MMOL/L (136-145); TRIGLYCERIDES LEVEL 149.0 MG/DL (<150)
[2025-05-02 12:27] LABS: ESTIMATED AVERAGE GLUCOSE 108.0 MG/DL (60-110)
== END ==
LOC: M PLALAB 07:46
PROVIDERS: ATTEND Nurse Practitioner Family
DX: R35.0 Frequency of micturition (principal)

== ENCOUNTER → 2025-08-28 | Outpatient (REF) | LOC: M CARPUL 08:21 | PROVIDERS: ATTEND Nurse Practitioner Adult Health | DX: Z00.00 Encounter for general adult medical examination without abnormal findings (principal) ==

== ENCOUNTER → 2025-09-28 | Outpatient (CLI) | payer BC | LOC: M CLY 08:32 | PROVIDERS: ATTEND Nurse Practitioner Family | DX: M51.360 Other intervertebral disc degeneration, lumbar region with discogenic back pain only (principal) ==